=== PATIENT | male | born 1975 | race Caucasian/White ===

== ENCOUNTER 2022-12-03 14:40 | Emergency (ER) | payer MEDICAID, MEDICARE ==
[~2022-12-03] VITALS: Ht 188 cm; Wt 136.1 kg
[2022-12-03 15:18] VITALS: BP 122/95; TEMP 98.8; O2SAT 97
== END 2022-12-03 15:23 | disposition home or self-care (01) ==
LOC: ER 14:40
DX: M54.50 Low back pain, unspecified (principal); Z88.8 Allergy status to other drugs, medicaments and biological substances
CPT/HCPCS: A4663